=== PATIENT | female | born 1995 | race Caucasian/White ===

== ENCOUNTER 2019-01-23 07:36 | Emergency (ER) | payer OTHER ==
--- NOTE | 2019-01-23 08:02 | EDM.PDOC ---
ED HPI GENERAL MEDICAL PROBLEM - General Chief Complaint: General Stated Complaint: kidney/bladder pain Time Seen by Provider: 01/23/19 07:40 Source of Information: Reports: Patient, Other (Work production department supervisor). Denies: Old Records (No [facility] records available) History Limitations: Reports: Altered Mental Status, Language Barrier - History of Present Illness INITIAL COMMENTS - FREE TEXT/NARRATIVE: Patient was brought to the emergency room via private automobile by her work production department supervisor, Maxime, for evaluation of progressive 6/10 bilateral lower quadrant abdominal pain associated with some nausea and 5 loose bowel movements with symptoms starting yesterday evening. She did have a UTI about 6 months ago with apparent antibiotic therapy at that time, however no subsequent follow-up. The patient felt that she had some current UTI and URI symptoms yesterday and did start Azo and [place] Plus(guaifenesin DM) yesterday evening with no recent antipyretic medications. She denies any colic or gross hematuria however some dysuria as above Patient is a poor historian secondary to her language barrier, etc.. No apparent known exposure to infection, food poisoning, etc. No recent history of other abdominal pain, heartburn, emesis, melena, gross hematochezia, or any food intolerance, including fatty foods, etc.. The patient denies any chest pain/pressure, heart flutter, dizziness, orthostasis, orthopnea , diaphoresis, paresthesias, recent decreased exercise tolerance, or any other anginal-type symptoms. The patient also denies any recent fever, cough, wheezing , dyspnea, etc.. She denies any pain at this time, however. Her LMP was normal on 01/01. Onset: Gradual Onset Date: 01/22/19 Duration: Resolved Prior to Arrival Location: Reports: Abdomen. Denies: Head, Face, Neck, Chest, Back, Pelvis, Upper Extremity, Left, Upper Extremity, Right, Radiates to Quality: Reports: Ache, Burning, Same as Previous Episode Improves with: Reports: None Worsens with: Reports: None Context: Denies: Sick Contact, Trauma Associated Symptoms: Reports: Nausea/Vomiting (As above). Denies: Confusion, Chest Pain, Cough, Diaphoresis, Fever/Chills, Headaches, Loss of Appetite, Malaise, Rash, Seizure, Shortness of Breath, Syncope, Weakness Treatments WEL[employer]: Reports: Other Medication(s) (As above). Denies: Acetaminophen , Aspirin, NSAIDS Bilateral Lower Abdomen Pain Score (Numeric/FACES): 6 (Resolved on arrival) - Related Data Allergies Allergy/AdvReac Type Severity Reaction Status Date / Time sulfamethoxazole Allergy Difficulty Verified 01/23/19 09:24 [From Bactrim] Breathing trimethoprim [From Bactrim] Allergy Difficulty Verified 01/23/19 09:24 Breathing Home Meds: Home Meds Fluconazole [Diflucan] 150 mg PO DAILY PRN #2 tablet 01/23/19 [Rx] Nitrofurantoin Monohyd/M-Cryst [Macrobid 100 mg Capsule] 100 mg PO BID #20 capsule 01/23/19 [Rx] Phenazopyridine HCl [Azo Urinary Pain Relief] 97.5 mg PO DAILY 01/23/19 [History ] guaiFENesin/Dextromethorphan [[place] Plus Mucus-Conges] 1 cap PO Q12HR [History] Past Medical History - Past Health History Medical/Surgical History: Denies Medical/Surgical History Genitourinary History: Reports: UTI, Recurrent CAREER DEVELOPMENT COUNSELOR History: Denies: , Spontaneous : 0 LMP (Approximate): Other (See Below) (01/01/19) Musculoskeletal History: Denies: Fracture Social & Family History - Tobacco Use Smoking Status *Q: Never Smoker Tobacco Use Within Last Twelve Months: No Used Tobacco, but Quit: No Smoking Cessation Information Provided To Patient: No Second Hand Smoke Exposure: No Second Hand Smoke Education Provided: No - Living Situation & Occupation Living situation: Reports: Other (Roommates) 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 ED EXAM, GENERAL - Physical Exam Exam: See Below Exam Limited By: No Limitations General Appearance: Alert, WD/WN, No Apparent Distress Eye Exam: Bilateral Eye: EOMI, Normal Inspection (No nystagmus), PERRL Ears: Normal External Exam, Normal Canal, Hearing Grossly Normal, Normal TMs Nose: Normal Inspection, Normal Mucosa, No Blood Throat/Mouth: Normal Inspection, Normal Lips, Normal Teeth, Normal Gums, Normal Oropharynx, Normal Voice, No Airway Compromise. No: Dysphagia, Perioral Cyanosis Head: Atraumatic, Normocephalic. No: Facial Swelling, Facial Tenderness, Sinus Tenderness Neck: Normal Inspection, Supple, Non-Tender, Full Range of Motion. No: Lymphadenopathy (L), Lymphadenopathy (R), Thyromegaly Respiratory/Chest: No Respiratory Distress, Lungs Clear, Normal Breath Sounds, No Accessory Muscle Use, Chest Non-Tender. No: Pleural Rub, Retractions Cardiovascular: Normal Peripheral Pulses, Regular Rate, Rhythm, No Edema, No Gallop, No JVD, No Murmur, No Rub. No: Gallop/S3, Gallop/S4, Friction Rub Peripheral Pulses: 2+: Radial (L), Radial (R) GI/Abdominal: Normal Bowel Sounds, Soft, Non-Tender, No Organomegaly, No Distention, No Abnormal Bruit, No Mass, Pelvis Stable. No: Guarding (Female) Exam: Deferred Rectal (Female) Exam: Deferred Back Exam: Normal Inspection, Full Range of Motion. No: CVA Tenderness (L), CVA Tenderness (R), Muscle Spasm Extremities: Normal Inspection, Normal Range of Motion, Non-Tender, No Pedal Edema, Normal Capillary Refill. No: Isamar's Sign Neurological: Alert, Oriented, CN II-XII Intact, Normal Cognition, Normal Gait, No Motor/Sensory Deficits Psychiatric: Normal Affect, Normal Mood Skin Exam: Warm, Dry, Intact, Normal Color, No Rash. No: Diaphoretic, Ecchymosis, Jaundice, Pallor, Petechiae, Wound/Incision Course - Vital Signs Last Recorded V/S: Last Vital Signs Temp 36.8 C 01/23/19 07:38 Pulse 83 01/23/19 07:38 Resp 16 01/23/19 07:38 BP 118/62 01/23/19 07:38 Pulse Ox 100 01/23/19 07:38 Vital Signs - 24 hr 01/23/19 07:38 Temperature [ 36.8 C Temporal] Pulse, 83 Peripheral [ Pulse Oximetry] Respiratory 16 Rate Blood Pressure 118/62 [Right Upper Arm] O2 Sat by Pulse 100 Oximetry - Orders/Labs/Meds Orders: Active Orders 24 hr Category Date Time Status Nothing Per Oral Diet [DIET] Diet 01/23/19 Breakfast Active Abdomen Series w Chest 1V [CR] Routine Exams 01/23/19 08:02 Ordered CULTURE URINE [RM] Stat Lab 01/23/19 08:02 Ordered UA W/MICROSCOPIC [URIN] Stat Lab 01/23/19 08:02 Ordered Obtain Past Medical Record [OM.PC] Urgent Oth 01/23/19 08:02 Active Resuscitation Status Stat Resus Stat 01/23/19 08:02 Ordered Labs: Laboratory Tests 01/23/19 01/23/19 01/23/19 Range/Units 08:10 08:10 08:10 WBC 4.4 (4.0-10.2) K/uL RBC 4.80 (3.77-5.09) M/uL Hgb 13.6 (11.7-15.5) g/dL Hct 40.9 (34.0-46.0) % MCV 85.2 (84.0-98.0) fL MCH 28.3 (28.2-33.3) pg MCHC 33.3 (31.7-36.0) g/dL RDW 13.7 (11.2-14.1) % Plt Count 239 (150-350) K/uL Neut % (Auto) 61.5 (45.0-80.0) % Lymph % (Auto) 30.4 (10.0-50.0) % Worth % (Auto) 7.0 (2.0-14.0) % Eos % (Auto) 0.9 (0.0-5.0) % Baso % (Auto) 0.2 (0.0-2.0) % Neut # (Auto) 2.73 (1.40-7.00) K/uL Lymph # (Auto) 1.35 (0.50-3.50) K/uL Worth # (Auto) 0.31 (0.00-1.00) K/uL Eos # (Auto) 0.04 (0.00-0.50) K/uL Baso # (Auto) 0.01 (0.00-0.20) K/uL PT 11.9 (9.5-12.0) SEC INR 1.1 APTT 32.5 H (21.0-31.3) SEC Sodium (136-145) mmol/L Potassium (3.5-5.1) mmol/L Chloride (98-107) mmol/L Carbon Dioxide (21.0-32.0) mmol/L BUN (7-18) mg/dL Creatinine (0.51-1.17) mg/dL Est Cr Clr Drug Dosing Estimated GFR (MDRD) mL/min Glucose (74-106) mg/dL Lactic Acid (0.4-2.0) mmol/L Uric Acid (2.6-7.2) mg/dL Calcium (8.5-10.1) mg/dL Magnesium (1.8-2.4) mg/dL Total Bilirubin (0.2-1.0) mg/dL AST (15-37) U/L ALT (12-78) U/L Alkaline Phosphatase (46-116) IU/L Total Protein (6.4-8.2) g/dL Albumin (3.4-5.0) g/dL Amylase 83 (25-115) U/L Lipase (73-393) U/L HCG, Qual (NEGATIVE) Specimen Type Urine Color Urine Appearance Urine pH (5.0-9.0) Ur Specific [place] (1.005-1.030) Urine Protein (NEGATIVE) mg/dL Urine Glucose (UA) (NEGATIVE) mg/dL Urine Ketones (NEGATIVE) mg/dL Urine Occult Blood (NEGATIVE) Urine Nitrite (NEGATIVE) Urine Bilirubin (NEGATIVE) Urine Urobilinogen (0.2-1.0) E.U./dL Ur Leukocyte Esterase (NEGATIVE) Urine RBC /HPF Urine WBC /HPF Ur Epithelial Cells /LPF Urine Bacteria (NONE TO FEW) /HPF 01/23/19 01/23/19 01/23/19 Range/Units 08:10 08:10 08:10 WBC (4.0-10.2) K/uL RBC (3.77-5.09) M/uL Hgb (11.7-15.5) g/dL Hct (34.0-46.0) % MCV (84.0-98.0) fL MCH (28.2-33.3) pg MCHC (31.7-36.0) g/dL RDW (11.2-14.1) % Plt Count (150-350) K/uL Neut % (Auto) (45.0-80.0) % Lymph % (Auto) (10.0-50.0) % Worth % (Auto) (2.0-14.0) % Eos % (Auto) (0.0-5.0) % Baso % (Auto) (0.0-2.0) % Neut # (Auto) (1.40-7.00) K/uL Lymph # (Auto) (0.50-3.50) K/uL Worth # (Auto) (0.00-1.00) K/uL Eos # (Auto) (0.00-0.50) K/uL Baso # (Auto) (0.00-0.20) K/uL PT (9.5-12.0) SEC INR APTT (21.0-31.3) SEC Sodium 136 (136-145) mmol/L Potassium 4.0 (3.5-5.1) mmol/L Chloride 100 (98-107) mmol/L Carbon Dioxide 27.1 (21.0-32.0) mmol/L BUN 11 (7-18) mg/dL Creatinine 0.79 (0.51-1.17) mg/dL Est Cr Clr Drug Dosing TNP Estimated GFR (MDRD) > 60 mL/min Glucose 97 (74-106) mg/dL Lactic Acid 1.1 (0.4-2.0) mmol/L Uric Acid 2.1 L (2.6-7.2) mg/dL Calcium 9.3 (8.5-10.1) mg/dL Magnesium 1.9 (1.8-2.4) mg/dL Total Bilirubin 0.6 (0.2-1.0) mg/dL AST 17 (15-37) U/L ALT 18 (12-78) U/L Alkaline Phosphatase 83 (46-116) IU/L Total Protein 8.8 H (6.4-8.2) g/dL Albumin 4.3 (3.4-5.0) g/dL Amylase (25-115) U/L Lipase 174 (73-393) U/L HCG, Qual Negative (NEGATIVE) Specimen Type Urine Color Urine Appearance Urine pH (5.0-9.0) Ur Specific [place] (1.005-1.030) Urine Protein (NEGATIVE) mg/dL Urine Glucose (UA) (NEGATIVE) mg/dL Urine Ketones (NEGATIVE) mg/dL Urine Occult Blood (NEGATIVE) Urine Nitrite (NEGATIVE) Urine Bilirubin (NEGATIVE) Urine Urobilinogen (0.2-1.0) E.U./dL Ur Leukocyte Esterase (NEGATIVE) Urine RBC /HPF Urine WBC /HPF Ur Epithelial Cells /LPF Urine Bacteria (NONE TO FEW) /HPF 01/23/19 Range/Units 09:35 WBC (4.0-10.2) K/uL RBC (3.77-5.09) M/uL Hgb (11.7-15.5) g/dL Hct (34.0-46.0) % MCV (84.0-98.0) fL MCH (28.2-33.3) pg MCHC (31.7-36.0) g/dL RDW (11.2-14.1) % Plt Count (150-350) K/uL Neut % (Auto) (45.0-80.0) % Lymph % (Auto) (10.0-50.0) % Worth % (Auto) (2.0-14.0) % Eos % (Auto) (0.0-5.0) % Baso % (Auto) (0.0-2.0) % Neut # (Auto) (1.40-7.00) K/uL Lymph # (Auto) (0.50-3.50) K/uL Worth # (Auto) (0.00-1.00) K/uL Eos # (Auto) (0.00-0.50) K/uL Baso # (Auto) (0.00-0.20) K/uL PT (9.5-12.0) SEC INR APTT (21.0-31.3) SEC Sodium (136-145) mmol/L Potassium (3.5-5.1) mmol/L Chloride (98-107) mmol/L Carbon Dioxide (21.0-32.0) mmol/L BUN (7-18) mg/dL Creatinine (0.51-1.17) mg/dL Est Cr Clr Drug Dosing Estimated GFR (MDRD) mL/min Glucose (74-106) mg/dL Lactic Acid (0.4-2.0) mmol/L Uric Acid (2.6-7.2) mg/dL Calcium (8.5-10.1) mg/dL Magnesium (1.8-2.4) mg/dL Total Bilirubin (0.2-1.0) mg/dL AST (15-37) U/L ALT (12-78) U/L Alkaline Phosphatase (46-116) IU/L Total Protein (6.4-8.2) g/dL Albumin (3.4-5.0) g/dL Amylase (25-115) U/L Lipase (73-393) U/L HCG, Qual (NEGATIVE) Specimen Type Urinvoid Urine Color [place] Urine Appearance Clear Urine pH 5.5 (5.0-9.0) Ur Specific [place] 1.010 (1.005-1.030) Urine Protein >=300 H (NEGATIVE) mg/dL Urine Glucose (UA) 100 H (NEGATIVE) mg/dL Urine Ketones Negative (NEGATIVE) mg/dL Urine Occult Blood Small H (NEGATIVE) Urine Nitrite Positive H (NEGATIVE) Urine Bilirubin Negative (NEGATIVE) Urine Urobilinogen 1.0 (0.2-1.0) E.U./dL Ur Leukocyte Esterase Negative (NEGATIVE) Urine RBC 5-10 H /HPF Urine WBC 5-10 H /HPF Ur Epithelial Cells Few /LPF Urine Bacteria Few (NONE TO FEW) /HPF Urine specimen set up for culture and sensitivity Meds: None - Radiology Interpretation Free Text/Narrative:: Acute abdominal x-ray shows borderline pulmonary obstructive disease with no cardiomegaly, pneumothorax, or infiltrates, pneumothorax, fluid levels, free air , ileus, or obstruction. Note mild to moderate scoliosis. Departure - Departure Time of Disposition: 10:30 Disposition: Home, Self-Care 01 Condition: Good Clinical Impression: Viral gastroenteritis, UTI, Urinary tract infectious disease URI (upper respiratory infection) Qualifiers: URI type: unspecified viral URI Qualified Code(s): J06.9 - Acute upper respiratory infection, unspecified - Discharge Information *PRESCRIPTION DRUG MONITORING PROGRAM REVIEWED*: Not Applicable *COPY OF PRESCRIPTION DRUG MONITORING REPORT IN PATIENT MARII: Not Applicable Prescriptions: Fluconazole [Diflucan] 150 mg PO DAILY PRN #2 tablet PRN Reason: Vaginal moniliasis Nitrofurantoin Monohyd/M-Cryst [Macrobid 100 mg Capsule] 100 mg PO BID #20 capsule Instructions: Urinary Tract Infection, Adult, [id number], Upper Respiratory Infection, Adult, [id number] Referrals: PCP,None [Primary Care Provider] - Forms: ED Department Discharge, ED Return to Work/School Form Additional Instructions: 1. Follow up with your regular provider in 10-14 days as directed. Bring these discharge instructions with you to that visit.. 2. Tylenol 650 mg by mouth every 4 hours and/or OTC ibuprofen 2-3 tabs by mouth every 6 hours with food as directed./needed. You may stagger these medications for 48-72 hours only, which essentially means that you are receiving a pain medication about every 2 hours. 3. [place] diet including encouragement of oral fluids such as sports drinks, etc. for 24-48 hours as directed. Advance to regular diet as tolerated thereafter. 4. Work excuse- See Form 5. Immediately after this visit verify that your cellular telephone's voicemail has been activated and is empty. Also verify that your home telephone 's answering machine is operating properly and has space to receive messages. Note that it is sometimes necessary for us to be able to contact you at a later date to discuss your medical care. 6. Please remember that we are ALWAYS here for you and want to answer any questions you may have. Feel free to call the hospital any time and we call you back [facility]. 7. Urine tests should be repeated at follow up visit with possible repeat urine culture,etc. at that time. Today's urine culture is pending with results in about 2-3 days. We will call you, if we need to change your therapy. 8. Encourage oral fluids, including daily cranberry use, etc.as directed. - Problem List & Annotations (1) Abdominal pain SNOMED Code(s): 94724746 Code(s): R10.9 - UNSPECIFIED ABDOMINAL PAIN Status: Acute Priority: High Current Visit: Yes Onset Date: 01/22/19 Annotation/Comment:: Intermittent bilateral lower quadrant abdominal pain likely secondary to current UTI with possibility of concomitant viral gastroenteritis. Some delay in obtaining urine specimen from the patient. This is not a Workmen's Compensation injury. Work Excuse was provided. Close follow-up by regular provider and symptomatically as per discharge instructions. Further workup for recurrent UTIs depending on her clinical course. Qualifiers: Abdominal location: lower abdomen, unspecified Qualified Code(s): R10.30 - Lower abdominal pain, unspecified (2) UTI, Urinary tract infectious disease SNOMED Code(s): 87246624 Code(s): N39.0 - URINARY TRACT INFECTION, SITE NOT SPECIFIED Status: Acute Priority: High Current Visit: Yes Onset Date: ~01/22/19 Annotation/ Comment:: As above (3) Viral gastroenteritis SNOMED Code(s): 473271811 Code(s): A08.4 - VIRAL INTESTINAL INFECTION, UNSPECIFIED Status: Acute Priority: High Current Visit: Yes Onset Date: ~01/22/19 Annotation/Comment :: As above (4) URI (upper respiratory infection) SNOMED Code(s): 28913724 Code(s): J06.9 - ACUTE UPPER RESPIRATORY INFECTION, UNSPECIFIED Status: Acute Priority: Medium Current Visit: Yes Onset Date: ~01/22/19 Annotation/Comment:: Continue symptomatic relief. Qualifiers: URI type: unspecified viral URI Qualified Code(s): J06.9 - Acute upper respiratory infection, unspecified (5) Scoliosis SNOMED Code(s): 314337098 Code(s): M41.9 - SCOLIOSIS, UNSPECIFIED Status: Chronic Priority: Medium Current Visit: Yes Onset Date: ~01/23/19 Annotation/Comment:: Newly diagnosed by today's x-rays. Nonsymptomatic and observe for now. Qualifiers: Scoliosis type: unspecified scoliosis Spinal region: thoracolumbar Qualified Code(s): M41.9 - Scoliosis, unspecified - Problem List Review Problem List Initiated/Reviewed/Updated: Yes - My Orders Last 24 Hours: My Active Orders 01/23/19 08:02 Abdomen Series w Chest 1V [CR] Routine CULTURE URINE [RM] Stat UA W/MICROSCOPIC [URIN] Stat Obtain Past Medical Record [OM.PC] Urgent Resuscitation Status Stat 01/23/19 Breakfast Nothing Per Oral Diet [DIET] - Assessment/Plan Last 24 Hours: My Active Orders 01/23/19 08:02 Abdomen Series w Chest 1V [CR] Routine CULTURE URINE [RM] Stat UA W/MICROSCOPIC [URIN] Stat Obtain Past Medical Record [OM.PC] Urgent Resuscitation Status Stat 01/23/19 Breakfast Nothing Per Oral Diet [DIET] Assessment:: As above Plan: As above. Extensive precautions were given to the patient and her production department supervisor, who are in agreement with the treatment plan. See Patient Instructions for further treatment and plan.
[2019-01-23 08:39] LABS: CHLORIDE,CL 100 mmol/L (98-107); SODIUM,NA 136 mmol/L (136-145)
== END 2019-01-23 10:30 | disposition home or self-care (01) ==
LOC: LL.ED 07:36
DX: A08.4 Viral intestinal infection, unspecified (principal); N39.0 Urinary tract infection, site not specified; J06.9 Acute upper respiratory infection, unspecified; Z88.2 Allergy status to sulfonamides; Z88.1 Allergy status to other antibiotic agents; Z79.899 Other long term (current) drug therapy
CPT/HCPCS: 36415; 74022; 80053; 81001; 82150; 83605; 83690; 83735; 84550; 84703; 85025; 85610; 85730; 87086; 99283-25